=== PATIENT | female | born 2000 | race Caucasian/White ===

== ENCOUNTER 2019-07-16 07:39 | Emergency (ER) | payer SELFPAY ==
[2019-07-16 07:52] VITALS: BP 124/76; PULSE 86; RESP 16; TEMP 36.4; O2SAT 100; BMI 21.6
--- NOTE | 2019-07-16 08:00 | CT_ITS ---
WS: [id number] CT ABDOMEN AND PELVIS WITH CONTRAST HISTORY: appendicitis TECHNIQUE: Imaging performed of the abdomen and pelvis with IV contrast. Single phase imaging of the abdomen. Coronal and sagittal reformats are submitted. All CT scans at [facility] use at least one of these dose optimization techniques: automated exposure control; mA and/or kV adjustment per patient size (includes targeted exams where dose is matched to clinical indication); or iterativ e reconstruction. IV CONTRAST: Omnipaque 300; 95 mL IV. Oral contrast: No DLP: 459.09 mGy.cm COMPARISON: None available. Lower thorax: Lung bases are clear. Heart is normal size. No hiatal hernia. Liver/biliary system: Liver is very slightly enlarged measuring 16 cm in length. There is diffuse per iportal edema. No mass identified. Gallbladder: Gallbladder is normally distended with diffuse mild pericholecystic fluid. Small amount of fluid in the gallbladder fossa and around the liver. Pancreas: Pancreas is poorly visualized. Spleen: Mild heterogeneity within the spleen. No enlargement. Adrenal glands: Poorly visualized. Right kidney: Nonobstructing 5 mm calcification in the mid kidney. Left kidney: Normal. Aorta: Normal. Lymphadenopathy: No lymph nodes are identified but adenopathy would be very difficult without oral co ntrast and lack of fat. Free fluid: There is a small amount of perihepatic and perisplenic fluid. Very small amount of fluid along the RIGHT paracolic gutter. GI tract: Extensive constipation. The appendix is not definitely identified. Abdominal wall: Unremarkable abdominal wall. No hernia. Pelvis: Uterus is midline with the endometrium is mildly thickened. There is a small amount of free f luid in the pelvis. Bilateral ovarian cysts are identified. There is haziness and inflammatory change s in the fat of the pelvis. Bones: Unremarkable. Notified Lito Prado DO at 07/16/2019 10:[address]/CT abdomen pelvis w con* [id number] IMPRESSION: 1. Abnormal CT abdomen and pelvis. 2. The appendix is not definitely identified. 3. Marked periportal edema and abnormal gallbladder with small amount of ascit es in the abdomen and pelvis. Consider hepatitis, passive hepatic congestion an d sclerosing cholangitis as a possible etiology. 4. Bilateral cystic masses in the adnexa. Correlate with positive or negative test. Ectopic , ruptured ovarian cyst with hemorrhage or rup tured appendix within the differential. 5. Small amount of free fluid in the pelvis and abdomen.
--- NOTE | 2019-07-16 08:00 | W.ED.ABDPA2 ---
HPI - Abdominal Pain General: Chief Complaint: Abdominal Pain Stated Complaint: ABD PAIN Time Seen by Provider: 07/16/19 07:40 History of Present Illness: Associated Symptoms: Reports nausea Related Data: Date of Last Menstrual Period: 07/02/19 Review of Systems General: Reports: 10 or more systems reviewed and unremarkable except in HPI and below Const: Reports: change in appetite (No appetite) GI: Reports: abdominal pain and nausea PFSH ED PFSH: Social History Smoking and tobacco status: never smoked Female Reproductive History: Date of last menstrual period: 07/02/19 Physical Exam Narrative: EXAM NARRATIVE: Awake and alert and appears to be moderately uncomfortable Const: COMMON NORMALS: oriented x3 and alert Neck/C-Spine: COMMON NORMALS: no JVD Resp: COMMON NORMALS: normal respiratory effort and clear to auscultation bilaterally EFFORT & INSPECTION: Yes able to speak in complete sentences AUSCULTATION: clear to auscultation bilaterally Cardio: COMMON NORMALS: no JVD, regular rate and regular rhythm RATE: regular rate RHYTHM: regular rhythm GI: COMMON NORMALS: soft to palpation and no hepatosplenomegaly INSPECTION: Yes normal to inspection AUSCULTATION: Yes hypoactive bowel sounds PALPATION: Yes soft, Yes tender Details: RLQ, Yes guarding, Yes no hepatosplenomegaly and Yes rebound tenderness present Extremity: COMMON NORMALS: normal to inspection, full ROM and normal capillary refill Neuro: COMMON NORMALS: oriented x3 SENSORIUM/ORIENTATION: Yes alert Skin: COMMON NORMALS: no rashes or lesions noted, no wounds, skin turgor normal, no jaundice, no petechiae and no mottling GENERAL SKIN EXAM: no rashes or lesions noted and turgor normal Course Vital Signs: Vital signs: Vital Signs Temperature 97.6 F 07/16/19 07:52 Pulse Rate 86 07/16/19 07:52 Respiratory Rate 16 07/16/19 07:52 Blood Pressure 124/76 07/16/19 07:52 Pulse Oximetry 97 07/16/19 08:07 MDM - Abdominal Pain Lab Data: Labs: Lab Results 07/16/19 07/16/19 07/16/19 Range/Units 08:00 08:00 08:00 WBC 8.6 (4.5-13.0) 10^3/ uL RBC 3.78 L (4.1-5.3) 10^6/u L Hgb 11.4 L (11.5-15.3) g/dL Hct 34.4 L (37.0-47.0) % MCV 91.0 (81-99) fL MCH 30.2 (28.0-34.0) pg MCHC 33.1 (30.0-36.0) g/dL RDW 11.3 L (12.1-15.1) % Plt Count 243 (130-400) 10^3/c mm MPV 9.9 (7.4-10.4) fL Neut % (Auto) 58.5 % Lymph % (Auto) 31.9 % Waller % (Auto) 6.8 % Eos % (Auto) 2.2 % Baso % (Auto) 0.4 % Neut # (Auto) 5.0 (1.8-8.0) 10^3/u L Lymph # (Auto) 2.7 (1.5-6.5) 10^3/u L Waller # (Auto) 0.6 (0.2-0.9) 10^3/u L Eos # (Auto) 0.2 (0.0-0.8) 10^3/u L Baso # (Auto) 0.0 (0.0-0.1) 10^3/u L Nucleated RBC % (a uto) 0 % Nucleated RBCs # 0.0 /100WBC Sodium 136 (136-145) mmol/L Potassium 3.6 (3.5-5.1) mmol/L Chloride 100 (98-107) mmol/L Carbon Dioxide 24 (22-29) mmol/L Anion Gap 15.6 (5-19) BUN 14 (6-20) mg/dL Creatinine 0.7 (0.5-0.9) mg/dL GFR Calculation 106.7 (90-130) mL/min Glucose 91 (65-115) mg/dL Lactate (0.5-2.2) mmol/L Calcium 9.4 (8.5-10.5) mg/dL Total Bilirubin 0.3 (0.15-1.2) mg/dL AST 17 (0-32) U/L ALT 16 (0-33) U/L Alkaline Phosphata se 48 (35-105) IU/L Total Protein 7.2 (6.6-8.7) g/dL Albumin 4.3 (3.5-5.2) g/dL Globulin 2.9 (1.3-4.6) g/dL HCG, Qual Negative (Negative) Urine Color (Yellow) Urine Appearance (CLEAR) Urine pH (5-7) Ur Specific Gravit y (1.005-1.030) Urine Protein (Negative) Urine Glucose (UA) (Normal) Urine Ketones (Negative) Urine Occult Blood (Negative) Urine Nitrate (Negative) Urine Bilirubin (NEGATIVE) Urine Urobilinogen (Negative) mg/dL Ur Leukocyte Roseline ase (Negative) 07/16/19 07/16/19 Range/Units 08:08 09:30 WBC (4.5-13.0) 10^3/ uL RBC (4.1-5.3) 10^6/u L Hgb (11.5-15.3) g/dL Hct (37.0-47.0) % MCV (81-99) fL MCH (28.0-34.0) pg MCHC (30.0-36.0) g/dL RDW (12.1-15.1) % Plt Count (130-400) 10^3/c mm MPV (7.4-10.4) fL Neut % (Auto) % Lymph % (Auto) % Waller % (Auto) % Eos % (Auto) % Baso % (Auto) % Neut # (Auto) (1.8-8.0) 10^3/u L Lymph # (Auto) (1.5-6.5) 10^3/u L Waller # (Auto) (0.2-0.9) 10^3/u L Eos # (Auto) (0.0-0.8) 10^3/u L Baso # (Auto) (0.0-0.1) 10^3/u L Nucleated RBC % (a uto) % Nucleated RBCs # /100WBC Sodium (136-145) mmol/L Potassium (3.5-5.1) mmol/L Chloride (98-107) mmol/L Carbon Dioxide (22-29) mmol/L Anion Gap (5-19) BUN (6-20) mg/dL Creatinine (0.5-0.9) mg/dL GFR Calculation (90-130) mL/min Glucose (65-115) mg/dL Lactate 1.2 (0.5-2.2) mmol/L Calcium (8.5-10.5) mg/dL Total Bilirubin (0.15-1.2) mg/dL AST (0-32) U/L ALT (0-33) U/L Alkaline Phosphata se (35-105) IU/L Total Protein (6.6-8.7) g/dL Albumin (3.5-5.2) g/dL Globulin (1.3-4.6) g/dL HCG, Qual (Negative) Urine Color Yellow (Yellow) Urine Appearance Clear (CLEAR) Urine pH 7.0 (5-7) Ur Specific Gravit y 1.005 (1.005-1.030) Urine Protein Neg (Negative) Urine Glucose (UA) Norm (Normal) Urine Ketones Negative (Negative) Urine Occult Blood Neg (Negative) Urine Nitrate Negative (Negative) Urine Bilirubin Neg (NEGATIVE) Urine Urobilinogen Norm (Negative) mg/dL Ur Leukocyte Roseline ase Negative (Negative) Discharge Plan Discharge Prescriptions: No Action Sprintec (28) 0.25-35 mg-mcg tablet 1 tab PO DAILY RF: 0 Coding Level of Care Code ED Broadcaster for Chg Fwd Exam Detailed
[2019-07-16 08:07] VITALS: O2SAT 97
[2019-07-16] MEDS: morphine 4 mg/mL SDV 1 mL 2 MG IVP (08:13)
[2019-07-16] MEDS: ondansetron 2 mg/ML SDV 2 mL 4 MG IVP (08:13)
[2019-07-16] MEDS: sodium chloride 0.9% 1,000 ML 999 ML IV (08:14)
[2019-07-16 08:15] LABS: Basophils % 0.4 %; Eosinophils # 0.2 10^3/uL (0.0-0.8); Eosinophils % 2.2 %; Hematocrit 34.4 % (37.0-47.0); Hemoglobin 11.4 g/dL (11.5-15.3); Lymphocytes # 2.7 10^3/uL (1.5-6.5); Lymphocytes % 31.9 %; Mean Corpuscular HGB Conc 33.1 g/dL (30.0-36.0); Mean Corpuscular Hemoglobin 30.2 pg (28.0-34.0); Mean Platelet Volume 9.9 fL (7.4-10.4); Monocytes # 0.6 10^3/uL (0.2-0.9); Monocytes % 6.8 %; Neutrophils % 58.5 %; Nucleated Red Blood Cells % 0 %; Platelet Count 243 10^3/cmm (130-400); Red Blood Count 3.78 10^6/uL (4.1-5.3); Red Cell Distribution Width 11.3 % (12.1-15.1); White Blood Count 8.6 10^3/uL (4.5-13.0)
[2019-07-16 08:25] LABS: HCG, Serum Qual Negative (Negative)
[2019-07-16 08:28] LABS: Alanine Aminotransferase 16 U/L (0-33); Albumin Level 4.3 g/dL (3.5-5.2); Alkaline Phosphatase 48 IU/L (35-105); Anion Gap 15.6 (5-19); Aspartate Amino Transferase 17 U/L (0-32); Blood Urea Nitrogen 14 mg/dL (6-20); Calcium 9.4 mg/dL (8.5-10.5); Carbon Dioxide 24 mmol/L (22-29); Chloride 100 mmol/L (98-107); Globulin 2.9 g/dL (1.3-4.6); Glomerular Filtration Rate 106.7 mL/min (90-130); Glucose 91 mg/dL (65-115); Potassium 3.6 mmol/L (3.5-5.1); Sodium 136 mmol/L (136-145); Total Bilirubin 0.3 mg/dL (0.15-1.2); Total Protein 7.2 g/dL (6.6-8.7)
[2019-07-16 08:28] LABS: Lactate (Lactic Acid level) 1.2 mmol/L (0.5-2.2)
[2019-07-16] MEDS: iohexol 300 mg/mL 100 mL Btl IV (08:49)
[2019-07-16 09:44] LABS: Add Urine Microscopic? NO
[2019-07-16 09:54] LABS: Bilirubin Urine Neg (NEGATIVE); Blood Urine Neg (Negative); Glucose Urine UA Norm (Normal); Ketones Urine Negative (Negative); Leukocyte Esterase Urine Negative (Negative); Nitrate Urine Negative (Negative); Protein Urine Neg (Negative); Specific Gravity, Urine 1.005 (1.005-1.030); Urine Appearance Clear (CLEAR); Urine Color Yellow (Yellow); Urobilinogen Urine Norm (Negative)
--- NOTE | 2019-07-16 10:32 | US_ITS ---
WS: [id number] PELVIC ULTRASOUND REASON FOR VISIT: pelvic pain TECHNIQUE: Grayscale and Doppler transabdominal ultrasound of the pelvis. FINDINGS: Pelvis was evaluated transvaginal and transabdominal. Uterus measures 9.59 cm x 4.7 cm x 3.8 cm, right ovary measures 5.2 cm x 2.7 cm x 1.7 cm, and left ov zoie measures 3.5 cm x 3.0 cm x 1.9 cm. Prominent follicles are seen in the right ovary and smaller fo llicles in the left ovary. The endometrium measured 1.18 cm. US/US pelvic complete* [id number] IMPRESSION: Marked endometrial hyperplasia. Multiple follicles in both ovaries worse on the left side.
[2019-07-16 12:25] VITALS: BP 122/69; PULSE 66; RESP 16; O2SAT 98
== END 2019-07-16 12:26 | disposition home or self-care (01) ==
PROVIDERS: Emergency Provider Family Medicine
DX: R10.9 Unspecified abdominal pain (principal); R11.0 Nausea
CPT/HCPCS: 36415; 74177; 76856; 80053; 81003; 83605; 84703; 85025; 87040; 96361; 96374; 96375; 99283; J2270; J2405; J7030; Q9967

== ENCOUNTER → 2019-11-11 17:59 | Outpatient (BNVA) | payer SELFPAY | PROVIDERS: Visit Provider Nurse Practitioner | DX: M25.369 Other instability, unspecified knee (principal) | CPT/HCPCS: 73562 ==

== ENCOUNTER 2019-11-26 15:30 | Outpatient (RCR) | payer BC, SELFPAY | END 2019-11-26 23:59 | disposition home or self-care (01) | LOC: SPT 15:30 | PROVIDERS: Referring Provider Nurse Practitioner Family; Visit Provider Nurse Practitioner Family | DX: M25.561 Pain in right knee (principal) | CPT/HCPCS: 97161 ==

== ENCOUNTER 2020-03-04 13:45 | Outpatient (CLI) | payer BC, SELFPAY ==
--- NOTE | 2020-03-04 13:53 | MR_ITS ---
WS: [id number] MRI RIGHT KNEE HISTORY: INTERNAL DERANGEMENT COMPARISON: None available. Anterior cruciate ligament: Intact. Posterior cruciate ligament: Intact. Medial collateral ligament: Intact. Posterior lateral corner structures: Intact. Medial menisci: Intact. Normal signal, size and shape. Lateral meniscus: Intact. Normal signal, size and shape. Extensor mechanism: Distal quadriceps tendon and patellar tendons are intact. Fluid and soft tissue: No joint effusion. No Schneider's cyst. Osseous and articular structures: Patellofemoral compartment: Normal. Medial compartment: Minimal involvement of the weightbearing surface medial femoral condyle. No under lying marrow edema. Lateral compartment: Negative. MR/MR knee RT wo con* [id number] IMPRESSION: 1. Very minimal cartilage irregularity along the medial weightbearing surface of the femoral condyle. 2. No joint effusion or marrow edema. No meniscal tear.
== END 2020-03-04 13:46 | disposition home or self-care (01) ==
PROVIDERS: Visit Provider Orthopaedic Surgery
DX: M23.91 Unspecified internal derangement of right knee (principal)
CPT/HCPCS: 73721

== ENCOUNTER → 2020-04-01 14:00 | Outpatient (BNVA) | payer OTHER, BC, SELFPAY | PROVIDERS: Visit Provider Nurse Practitioner Family | DX: N39.0 Urinary tract infection, site not specified (principal) | CPT/HCPCS: 81000; 81025 ==